=== PATIENT | male | born 1940 | race Caucasian/White ===

== ENCOUNTER 2018-12-19 10:09 | Emergency (ER) | payer OTHER ==
[~2018-12-19] VITALS: Ht 160 cm; Wt 50.0 kg
[~2018-12-19 10:09] MED LIST: DOXYCYCLINE 10100 MG PO; NORCO 5-325 TA1 EACH PO
[2018-12-19 10:43] LABS: ABSOLUTE NEUTROPHILS 16.4 thou/uL (1.4-8.2); BASOPHILS 0.5 % (0.0-2.0); EOSINOPHILS 0.1 % (0.0-3.0); HEMOGLOBIN 11.4 gm/dL (14.0-18.0); LYMPHOCYTES 3.2 % (24.0-44.0); MCHC 32.7 g/dL (28.0-37.0); MCV 91.6 fL (80.0-100.0); MONOCYTES 4.8 % (1.0-8.0); PLATELET COUNT 600 thou/uL (150-400); POLYS 91.4 % (36.0-66.0); RBC 3.82 mil/uL (4.50-6.00); RDW 13.3 % (10.5-14.5); WBC 17.9 thou/uL (4.0-11.0)
[2018-12-19 10:50] LABS: ANION GAP 7 mmol/L (7-16); BUN 21 mg/dL (7-18); CALCIUM 8.9 mg/dL (8.5-10.1); CHLORIDE 102 mmol/L (98-107); CO2 29 mmol/L (21-32); CREATININE 1.3 mg/dL (0.7-1.3); GLUCOSE 113 mg/dL (74-106); POTASSIUM 4.4 mmol/L (3.5-5.1); SODIUM 138 mmol/L (136-145)
[2018-12-19 10:59] LABS: ALBUMIN 2.3 g/dL (3.4-5.0); MAGNESIUM 2.4 mg/dL (1.8-2.4); SGOT 13 U/L (15-37); SGPT 12 U/L (30-65); TOTAL BILIRUBIN 0.2 mg/dL (<0.1-1.0); TOTAL PROTEIN 7.1 g/dL (6.4-8.2); TROPONIN-I <0.06 ng/mL (<0.06)
[2018-12-19] MEDS ORDERED: AUGMENTIN 875-1 EACH PO (12:03)
[2018-12-19 12:21] VITALS: BP 135/57
--- NOTE | 2018-12-20 08:01 | EKG ---
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: [facility] : 1940 Requested By: Sancho Elmore Order Number: [id number] MD: Deuce Cooper Measurements Intervals [place] Rate: 78 P: 51 [place]: 128 QRS: -13 QRSD: 79 T: 61 QT: 369 QTc: 421 Interpretive Statements Sinus rhythm No significant abnormality Compared to ECG 04/20/2003 16:38:18 Sinus bradycardia no longer present Electronically Signed On 12-20-2018 8:01:10 CDT by Deuce Cooper [email or web address] ��������������������������������������������� <ELECTRONICALLY SIGNED> ���������������������������������������� By: Deuce Cooper MD, [facility] ��������������������������������������������� 12/20/18 0801 [id number] [id number] Deuce Cooper MD, FACC /EPI
== END 2018-12-19 12:22 | disposition home or self-care (01) ==
LOC: ER 10:09
PROVIDERS: Emergency Medicine
DX: M25.552 Pain in left hip (principal); J44.1 Chronic obstructive pulmonary disease with (acute) exacerbation; F10.10 Alcohol abuse, uncomplicated; G89.29 Other chronic pain; M54.9 Dorsalgia, unspecified; F17.210 Nicotine dependence, cigarettes, uncomplicated; Z98.890 Other specified postprocedural states; Z90.3 Acquired absence of stomach [part of]; Z88.8 Allergy status to other drugs, medicaments and biological substances; W18.39XA Other fall on same level, initial encounter; Y92.89 Other specified places as the place of occurrence of the external cause; Y93.89 Activity, other specified; Y99.8 Other external cause status